=== PATIENT | male | born 1955 ===

== ENCOUNTER 2021-11-09 10:30 | Inpatient (IN) ==
[2021-12-12] MEDS ORDERED: Lactated Ringers 1000 ml BAG 1,000 ML IV SCH (06:00)
[2021-12-12] MEDS ORDERED: Buffered Lidocaine 1% SYRIN 1 ml INTRADERM ONE (06:00)
[2021-12-12] MEDS ORDERED: ceFAZolin 2 GM in NS PREMIX 2 GM/100 ML BAG IVPB ONE (12:13)
[2021-12-12] MEDS ORDERED: Ondansetron 4 mg VIAL 2 MG/ML 2 ml VIAL IV PRN ×3 (13:35→16:48)
[2021-12-12] MEDS ORDERED: diPHENhydraMINE IV 50 MG/ML 1 ml VIAL (BENADRYL) IV PRN ×2 (13:35→16:40)
[2021-12-12] MEDS ORDERED: DiMENhydriNATE IV 50 mg/ml 1 ml VIAL IV PUSH PRN ×2 (13:35→16:48)
[2021-12-12] MEDS ORDERED: Naloxone 0.4 mg VIAL 0.4 mg/ml 1 ml VIAL IV PRN ×2 (13:35→16:48)
[2021-12-12] MEDS ORDERED: fentaNYL 100 mcg/2 ml 50 MCG/ML VIAL IV PRN ×2 (13:35→16:48)
[2021-12-12] MEDS ORDERED: Midazolam 2 mg/2 ml VIAL 1 mg/ml 2 ml VIAL (2 mg) ONE (14:20)
[2021-12-12] MEDS ORDERED: Dexamethasone IV 4 MG/ML VIAL 1 ml VIAL ONE ×2 (14:20→15:01)
[2021-12-12] MEDS ORDERED: Lidocaine 1% MPF 5 ML VIAL ONE (14:25)
[2021-12-12] MEDS ORDERED: Bupivacaine 0.5% SDV PF 30ML VIAL ONE (14:25)
[2021-12-12 14:38] LABS: INR 1.21 (0.86-1.15)
[2021-12-12] MEDS ORDERED: Lidocaine 2% PF 5 ML VIAL ONE (15:01)
[2021-12-12] MEDS ORDERED: Ondansetron 4 mg VIAL 2 MG/ML 2 ml VIAL ONE (15:01)
[2021-12-12] MEDS ORDERED: fentaNYL 100 mcg/2 ml 50 MCG/ML VIAL ONE (15:01)
[2021-12-12] MEDS ORDERED: Propofol 10 MG/ML 20 ML BTL ONE (15:01)
[2021-12-12] MEDS ORDERED: diPHENhydraMINE 25 mg TAB PO PRN (16:40)
[2021-12-12] MEDS ORDERED: Lactulose 30 ml UDC PO PRN (16:40)
[2021-12-12] MEDS ORDERED: Ondansetron ODT 4 mg TAB 4 MG TAB PO PRN (16:40)
[2021-12-12] MEDS ORDERED: Magnesium Hydroxide LIQ 30 ML UDC PO PRN (16:40)
[2021-12-12] MEDS ORDERED: Ropivacaine 5 MG/ML 20 ML VIAL 0.5% (100 MG) ONE (16:44)
[2021-12-12] MEDS: Lactated Ringers 1000 ml BAG 1,000 ML IV SCH (21:08)
[2021-12-12] MEDS: Magnesium Hydroxide LIQ 30 ML UDC PO SCH (21:15)
[2021-12-12] MEDS: ceFAZolin 1 GM ADVAN 1 GM in NS 0.9% 50 ML 50 ML IVPB SCH (23:29)
[2021-12-13] MEDS: Morphine 2 MG/ML SYRINGE IV PRN ×2 (00:47→05:02)
[2021-12-13 06:24] LABS: Hematocrit 42 % (42-52); Mean Platelet Volume 7.7 fL (7.4-10.4); Platelet Count 366 10^3/uL (150-450)
[2021-12-13 06:44] LABS: Calcium 9.3 mg/dL (8.6-10.3); Potassium 4.6 mmol/L (3.5-5.0); eGFR CKD-EPI 76.2 (>60)
[2021-12-13] MEDS: Lactated Ringers 1000 ml BAG 1,000 ML IV SCH (06:52)
[2021-12-13] MEDS: Magnesium Hydroxide LIQ 30 ML UDC PO SCH (07:38)
[2021-12-13] MEDS: ceFAZolin 1 GM ADVAN 1 GM in NS 0.9% 50 ML 50 ML IVPB SCH ×2 (07:44→15:08)
[2021-12-13] MEDS ORDERED: Flu vaccine *QUAD* 2021-22* 0.5 ML SYRINGE IM ONE (09:00)
[2021-12-13] MEDS ORDERED: Vitamin THERAPEUTIC TAB PO SCH (09:00)
[2021-12-13] MEDS ORDERED: Pneumococcal Vac 23-Polyvalent IM ONE (09:00)
[2021-12-13 16:11] VITALS: BP 116/74
== END 2021-12-13 16:20 | disposition home or self-care (01) | DRG 470 ==
LOC: AA 12-12 12:03 → SSU 12-12 19:55
PROVIDERS: ADMIT Orthopaedic Surgery Adult Reconstructive Orthopaedic Surgery; ATTEND Orthopaedic Surgery Adult Reconstructive Orthopaedic Surgery